=== PATIENT | male | born 1980 | race Caucasian/White ===

== ENCOUNTER 2018-03-14 13:57 | Emergency (ER) | payer MEDICAID, OTHER | END 2018-03-14 16:03 | disposition home or self-care (01) | LOC: ED 13:57 ==

== ENCOUNTER 2018-03-16 14:37 | Emergency (ER) | payer MEDICAID ==
[~2018-03-16] VITALS: Ht 172.7 cm; Wt 109.3 kg
[2018-03-16 14:49] VITALS: BP 122/73; Ht 172.7 cm; Wt 109.3 kg
== END 2018-03-16 17:11 | disposition left against medical advice (07) ==
LOC: ED 14:37
DX: Z53.21 Procedure and treatment not carried out due to patient leaving prior to being seen by health care provider (principal)

== ENCOUNTER 2018-03-24 14:39 | Emergency (ER) | payer MEDICAID ==
[~2018-03-24] VITALS: Ht 172.7 cm; Wt 110.8 kg
[2018-03-24 15:02] VITALS: BP 140/101; Ht 172.7 cm; Wt 110.8 kg
== END 2018-03-24 16:44 | disposition left against medical advice (07) ==
LOC: ED 14:39
DX: Z53.21 Procedure and treatment not carried out due to patient leaving prior to being seen by health care provider (principal)